=== PATIENT | male | born 1980 | race African-American/Black ===

== ENCOUNTER 2017-05-23 22:53 | Emergency (ER) | payer SELFPAY ==
[~2017-05-23] VITALS: Ht 182.9 cm; Wt 98.0 kg
[2017-05-24] MEDS ORDERED: KETOROLAC 60MG/2ML VIAL IM ONE
[2017-05-24] MEDS ORDERED: ONDANSETRON HCL 4MG/2ML VIAL IV ONE (01:30)
[2017-05-24] MEDS ORDERED: MIDAZOLAM HCL 2 MG/2 ML VIAL IV ONE (01:30)
[2017-05-24] MEDS ORDERED: KETAMINE HCL 50 MG/ML 10ML IV ONE ×2 (01:30→02:45)
[2017-05-24 04:00] VITALS: BP 137/79
== END 2017-05-24 04:11 | disposition home or self-care (01) ==
LOC: ER 23:00
DX: S43.015A Anterior dislocation of left humerus, initial encounter (principal); W19.XXXA Unspecified fall, initial encounter; Y93.89 Activity, other specified; Y92.89 Other specified places as the place of occurrence of the external cause; Y99.8 Other external cause status
CPT/HCPCS: 23650; 73030; 96372; 96374; 96375; 99152; 99285; J1885; J2250; J2405; J3490; 99284; L3670